=== PATIENT | female | born 1955 | race Hispanic/Latino ===

== ENCOUNTER 2017-12-27 17:17 | Observation (INO) | payer OTHER ==
--- NOTE | 2017-12-27 18:45 | ED PDOC ---
HPI: Chest Pain Time Seen by Provider: 12/27/17 17:39 Chief Complaint (Nursing): Chest Pain Chief Complaint (Provider): Chest Pain History Per: Patient History/Exam Limitations: no limitations Onset/Duration Of Symptoms: Hrs (10am) Current Symptoms Are (Timing): Still Present Quality: "Pain" Additional Complaint(s): 62 year old female presents to the ED complaining of pleuritic chest pain onset 10am today. Reports of feeling pain on the left-side when taking deep breath. States pain is not constant but she has difficulty breathing. Denies fever, cough, or similar pain in the past. PMD: Demarco Foote Past Medical History Reviewed: Historical Data, Nursing Documentation, Vital Signs Vital Signs: Last Vital Signs Temp 97.8 F 12/28/17 09:00 Pulse 76 12/28/17 09:00 Resp 16 12/28/17 09:00 BP 144/73 12/28/17 09:00 Pulse Ox 99 12/28/17 09:00 - Medical History PMH: No Chronic Diseases - Surgical History Surgical History: Appendectomy - Family History Family History: States: No Known Family Hx - Home Medications Home Medications: Ambulatory Orders Medication Instructions Recorded No Known Home Med 12/28/17 - Allergies Allergies/Adverse Reactions: Allergies Allergy/AdvReac Type Severity Reaction Status Date / Time No Known Allergies Allergy Verified 12/27/17 17:21 [place] Risk Score for UA/NSTEMI - [place] Risk Score Age > 64: NO 3 or more CAD Risk Factors: NO Known CAD (Stenosis greater than 50%): NO Aspirin use in past 7 days: NO Severe Angina: NO EKG ST changes greater than 0.5mm: NO Positive Cardiac Marker: NO [place] Score: 0 Risk %: 5% Wells Criteria for PE - Wells Criteria for Pulmonary Embolism Clinical Signs and Symptoms of DVT: No P.E is #1 Diagnosis, or Equally Likely: Yes (3) Heart Rate >100: No Immobilization at least 3 days;Surgery previous 4 weeks: No Previous, objectively diagnosed PE or DVT: No Hemoptysis: No Malignancy w/treatment within 6 months, or palliative: No Total Score: 1 Review of Systems ROS Statement: Except As Marked, All Systems Reviewed And Found Negative Constitutional: Negative for: Fever Cardiovascular: Positive for: Chest Pain Respiratory: Negative for: Cough Physical Exam - Reviewed Nursing Documentation Reviewed: Yes Vital Signs Reviewed: Yes - Physical Exam Appears: Positive for: Well, Non-toxic, No Acute Distress Head Exam: Positive for: ATRAUMATIC, NORMAL INSPECTION, NORMOCEPHALIC Skin: Positive for: Normal Color, Warm, Dry Eye Exam: Positive for: EOMI, Normal appearance, PERRL ENT: Positive for: Normal ENT Inspection Neck: Positive for: Normal, Painless ROM, Supple. Negative for: Decreased ROM Cardiovascular/Chest: Positive for: Regular Rate, Rhythm. Negative for: Murmur Respiratory: Positive for: Normal Breath Sounds. Negative for: Decreased Breath Sounds, Accessory Muscle Use, Respiratory Distress Gastrointestinal/Abdominal: Positive for: Normal Exam, Bowel Sounds, Soft. Negative for: Tenderness, Guarding, Rebound Back: Positive for: Normal Inspection. Negative for: L CVA Tenderness, R CVA Tenderness Extremity: Positive for: Normal ROM. Negative for: Tenderness, Pedal Edema, Deformity Neurologic/Psych: Positive for: Alert, Oriented (x3). Negative for: Motor/ Sensory Deficits - Laboratory Results Result Diagrams: 12/27/17 19:00 12/27/17 19:00 - ECG ECG: Positive for: Interpreted By Me, Viewed By Tn ECG Rhythm: Positive for: Normal QRS, Normal ST Segment, Sinus Rhythm. Negative for: ST/T Changes Rate: 83 O2 Sat by Pulse Oximetry: 99 (RA) Pulse Ox Interpretation: Normal Medical Decision Making Medical Decision Making: Time: 1758 Initial Impression: chest pain Differential Diagnosis includes but is not limited to: acute coronary syndrome, pulmonary embolism, and other pulmonary conditions considered but not listed Initial Plan: --EKG --MP --Troponin I --CBC w/ Differential --D Dimer --Chest One View --Program Technician --Reevaluation Time: 1899 Patient signed out to Dr. Mckeon by fl pending reevaluation. Scribe Attestation: Documented by Niall Cerda, acting as a scribe for Katherine Maldonado MD Provider Scribe Attestation: All medical record entries made by the Scribe were at my direction and personally dictated by me. I have reviewed the chart and agree that the record accurately reflects my personal performance of the history, physical exam, medical decision making, and the department course for this patient. I have also personally directed, reviewed, and agree with the discharge instructions and disposition. Disposition - Clinical Impression Clinical Impression: Chest pain - Patient ED Disposition Is Patient to be Admitted: Transfer of Care Counseled Patient/Family Regarding: Studies Performed, Diagnosis - Disposition Disposition: Transfer of Care Disposition Time: 19:00 Condition: STABLE Patient Signed Over To: Ian Mckeon (reevaluation )
[2017-12-27 19:04] LABS: BASO % 0.6 % (0.0-2.0); EOS % 0.3 % (0.0-4.0); HEMOGLOBIN 13.7 g/dL (12.0-16.0); LYMPH # 1.9 K/uL (1.0-4.3); LYMPH % 24.9 % (20.0-40.0); MEAN CELL VOLUME 99.6 fl (81.0-99.0); MEAN CORPUSCULAR HEMOGLOBIN 34.6 pg (27.0-31.0); MEAN CORPUSCULAR HGB CONC 34.7 g/dL (33.0-37.0); MEAN PLATELET VOLUME 7.9 fl (7.2-11.7); MONO # 0.8 K/uL (0.0-0.8); MONO % 10.9 % (0.0-10.0); NEUT # 4.9 K/uL (1.8-7.0); NEUT % 63.3 % (50.0-75.0); RBC 3.95 Mil/uL (3.80-5.20); RED CELL DISTRIBUTION WIDTH 12.5 % (11.5-14.5); WHITE BLOOD COUNT 7.7 K/uL (4.8-10.8)
[2017-12-27 19:25] LABS: BLOOD UREA NITROGEN 10 mg/dl (7-17); CALCIUM 9.3 mg/dL (8.4-10.2); GFR AFRICAN-AMERICAN > 60; GFR NON-AFRICAN AMERICAN > 60
--- NOTE | 2017-12-27 19:37 | ED PDOC ---
- Laboratory Results Result Diagrams: 12/27/17 19:00 12/27/17 19:00 - ECG O2 Sat by Pulse Oximetry: 99 (RA) Pulse Ox Interpretation: Normal Medical Decision Making Medical Decision Making: Time: 1899 Patient signed out to me by Dr. Maldonado pending reevaluation. Labs present no clinical abnormalities. Patient feels discomfort on left-side of chest that is worse with breathing and movement. Toradol 15mg IVP was ordered for the patient. Case was referred to Dr. Key who is covering for Dr. Bianchi. Scribe Attestation: Documented by Niall Cerda, acting as a scribe for Ian Mckeon MD Provider Scribe Attestation: All medical record entries made by the Scribe were at my direction and personally dictated by me. I have reviewed the chart and agree that the record accurately reflects my personal performance of the history, physical exam, medical decision making, and the department course for this patient. I have also personally directed, reviewed, and agree with the discharge instructions and disposition. Disposition Counseled Patient/Family Regarding: Studies Performed, Diagnosis - Clinical Impression Clinical Impression: Chest pain - POA Present On Arrival: None - Disposition Disposition: Hospitalized as Observation Patient Disposition Time: 20:30 Condition: FAIR
[2017-12-28] MEDS: Enoxaparin 40 mg Syringe SC SCH ×3 (00:14→23:36)
[2017-12-28 04:08] VITALS: BMI 20.8
[2017-12-28] MEDS ORDERED: Pneumococcal 23-Valent Vaccine IM ONE (08:00)
[2017-12-28 11:32] LABS: PARTIAL THROMBOPLASTIN TIME 40.4 Seconds (25.6-37.1); PROTHROMBIN TIME 10.7 Seconds (9.8-13.1)
--- NOTE | 2017-12-28 13:56 | RAD ---
PROCEDURE: CHEST RADIOGRAPH, 1 VIEW HISTORY: chest pain COMPARISON: None available. FINDINGS: LUNGS: Clear. PLEURA: No pneumothorax or pleural fluid seen. CARDIOVASCULAR: Normal. OSSEOUS STRUCTURES: No significant abnormalities. VISUALIZED UPPER ABDOMEN: Normal. OTHER FINDINGS: None. IMPRESSION: No active disease.
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
--- NOTE | 2017-12-28 21:11 | HP ---
CHIEF COMPLAINT: Chest pain. HISTORY OF PRESENT ILLNESS: This is a 62-year-old female who is a patient of Dr. Foote and was being followed up with Dr. Foote regularly, was having chest pain on and off for few days, brought the patient into emergency room and was admitted for further management. REVIEW OF SYSTEMS: Positive for chest pain. Review of systems otherwise is negative for headache, dizziness, syncope, loss of consciousness, nausea, vomiting, diarrhea, constipation, or any new joint or extremity pain. Review of systems of all other organ systems is unremarkable. PAST MEDICAL HISTORY: Unremarkable. PAST SURGICAL HISTORY: Remarkable for appendectomy. PERSONAL HISTORY: The patient is currently nonsmoker and nondrinker. No substance abuse. MEDICATIONS: The patient is not on any medication. ALLERGIES: THE PATIENT IS NOT ALLERGIC TO ANY MEDICATIONS. FAMILY HISTORY: Noncontributory. PHYSICAL EXAMINATION: GENERAL: A well-built and well-nourished 62-year-old female in no acute distress. VITAL SIGNS: Temperature 98.2, pulse 75, respirations 18, blood pressure 137/83, and saturation 98%. HEENT AND NECK: Pupils reacting to light. No JVD. No thyromegaly. No lymphadenopathy. No nystagmus. Normocephalic and atraumatic skull. HEART: S1 and S2, normal and regular. No significant murmur, gallop, or rub is heard. LUNGS: Show good bilateral air exchange. No rales or rhonchi. ABDOMEN: Soft and nontender. No organomegaly. No fluid. Bowel sounds are plus and normal. EXTREMITIES: No edema. No calf swelling. No tenderness. No acute ischemia. CENTRAL NERVOUS SYSTEM: Essentially unchanged. DIAGNOSTIC DATA: Available diagnostic data reviewed. WBC 7.5, hemoglobin 13.5, hematocrit 39.3, and platelets 214. Sodium 134, potassium 3.8, chloride 99, bicarb 20, BUN 10, and creatinine 0.5. Cardiac workup; three sets are negative. Chest x-ray is clear. Telemetry monitoring does not . IMPRESSION: Chest pain, rule out acute coronary syndrome. PLAN: Plan as ordered. Case and plan discussed with the patient. Jigar Key MD
[2017-12-29 00:33] VITALS: RESP 18
[2017-12-29 05:42] VITALS: O2SAT 98
--- NOTE | 2017-12-29 06:31 | CARD ---
APPROVED REPORT EKG Measurement Heart [id number] <Conclusion> Normal sinus rhythm Normal ECG
--- NOTE | 2017-12-29 07:35 | CP.PCM.PN ---
Subjective - Date & Time of Evaluation Date of Evaluation: 12/29/17 Time of Evaluation: 07:34 - Subjective Subjective: feeling fine today Objective - Vital Signs/Intake and Output Vital Signs (last 24 hours): Temp Pulse Resp BP Pulse Ox 98.3 F 76 18 122/81 98 12/29/17 05:42 12/29/17 05:42 12/29/17 05:42 12/29/17 05:42 12/29/17 05:42 - Medications Medications: Current Medications Enoxaparin Sodium (Lovenox) 40 mg SC DAILY SALTY PRN Reason: Protocol Last Admin: 12/28/17 23:36 Dose: 40 mg - Labs Labs: 12/27/17 19:00 12/27/17 19:00 PT 10.7 Seconds (9.8-13.1) 12/28/17 11:04 INR 1.0 (0.9-1.2) 12/28/17 11:04 APTT 40.4 Seconds (25.6-37.1) H 12/28/17 11:04 - Constitutional Appears: Well - Head Exam Head Exam: ATRAUMATIC, NORMAL INSPECTION, NORMOCEPHALIC - Eye Exam Eye Exam: EOMI, Normal appearance, PERRL Pupil Exam: NORMAL ACCOMODATION, PERRL - ENT Exam ENT Exam: Mucous Membranes Moist, Normal Exam - Neck Exam Neck Exam: Full ROM, Normal Inspection. absent: Lymphadenopathy - Respiratory Exam Respiratory Exam: Clear to Ausculation Bilateral, NORMAL BREATHING PATTERN - Cardiovascular Exam Cardiovascular Exam: REGULAR RHYTHM, +S1, +S2. absent: Murmur - GI/Abdominal Exam GI & Abdominal Exam: Soft, Normal Bowel Sounds. absent: Tenderness - Extremities Exam Extremities Exam: Full ROM, Normal Capillary Refill, Normal Inspection. absent : Joint Swelling, Pedal Edema - Back Exam Back Exam: NORMAL INSPECTION - Neurological Exam Neurological Exam: Alert, Awake, CN II-XII Intact, Normal Gait, Oriented x3 - Psychiatric Exam Psychiatric exam: Normal Affect, Normal Mood - Skin Skin Exam: Dry, Intact, Normal Color, Warm Assessment and Plan (1) Chest pain Assessment & Plan: etiology 2' to anxiety stable to dc home after echo Status: Acute (2) Anxiety Status: Acute
[2017-12-29 07:42] VITALS: BP 138/82; PULSE 73; TEMP 98.2
[2017-12-29] MEDS: Enoxaparin 40 mg Syringe SC SCH (08:53)
--- NOTE | 2017-12-30 08:02 | CARD ---
APPROVED REPORT EXAM: Two-dimensional and M-mode echocardiogram with Doppler and color Doppler. Other Information Quality : GoodRhythm : NSR INDICATION Chest Pain 2D DIMENSIONS IVSd0.94 (0.7-1.1cm)LVDd4.05 (3.9-5.9cm) LVOT Diameter1.69 (1.8-2.4cm)PWd0.97 (0.7-1.1cm) IVSs1.12 (0.8-1.2cm)LVDs2.70 (2.5-4.0cm) FS (%) 33.4 %PWs1.27 (0.8-1.2cm) M-Mode DIMENSIONS Left Atrium (MM)3.67 (2.5-4.0cm)IVSd1.02 (0.7-1.1cm) Aortic Root2.67 (2.2-3.7cm)LVDd4.41 (4.0-5.6cm) Aortic Cusp Exc.1.79 (1.5-2.0cm)PWd0.80 (0.7-1.1cm) IVSs1.60 cmFS (%) 46 % LVDs2.40 (2.0-3.8cm)PWs1.46 cm Mitral Valve MV E Xznvllre33.1cm/sMV DECEL [id number] A Buvbhfbt10.4cm/s MV [id number] ratio0.9MVA (PHT)3.00cm2 TDI Lateral E' Peak V9.70cm/sMedial E' Peak V8.47cm/sE/Lateral E'6.5 E/Medial E'7.4 Pulmonary Valve PV Peak Ubpvhlvw87.5cm/s Tricuspid Valve TR Peak Lrtggrzv791qv/sRAP [id number] Peak Gr.15mmHg [id number] LEFT VENTRICLE The left ventricle is normal size. There is normal left ventricular wall thickness. Left ventricle systolic function is normal. The Ejection Fraction is 65-70%. There is normal LV segmental wall motion. Transmitral Doppler flow pattern is Grade I-abnormal relaxation pattern. RIGHT VENTRICLE The right ventricle is normal size. There is normal right ventricular wall thickness. The right ventricular systolic function is normal. ATRIA The left atrium size is normal. The right atrium size is normal. AORTIC VALVE The aortic valve is normal in structure. No aortic regurgitation is present. There is no aortic valvular stenosis. MITRAL VALVE The mitral valve is normal in structure. There is no evidence of mitral valve prolapse. There is no mitral valve stenosis. There is no mitral valve regurgitation noted. TRICUSPID VALVE The tricuspid valve is normal in structure. There is trace to mild tricuspid regurgitation. Right ventricular systolic pressure is estimated at 26 mmHg. There is no pulmonary hypertension. PULMONIC VALVE The pulmonary valve is normal in structure. There is no pulmonic valvular regurgitation. GREAT VESSELS The aortic root is normal in size. The IVC is normal in size and collapses >50% with inspiration. PERICARDIAL EFFUSION The pericardium appears normal. <Conclusion> The left ventricle is normal size. There is normal left ventricular wall thickness. There is normal LV segmental wall motion. Left ventricle systolic function is normal. The Ejection Fraction is 65-70%. Transmitral Doppler flow pattern is Grade I-abnormal relaxation pattern.
--- NOTE | 2017-12-30 09:34 | PN ---
DATE: 12/29/2017 SUBJECTIVE: The patient is seen and examined. Interim events noted. Consults noted and appreciated. Case discussed with emergency management system director. The patient feels okay. No chest pain and no shortness of breath. PHYSICAL EXAMINATION: GENERAL: The patient is in no acute distress. VITAL SIGNS: Stable. HEART: S1 and S2, . EXTREMITIES: No edema. No tenderness. No acute . DIAGNOSTIC DATA: Available diagnostic data reviewed. Acute [place] was rule out and telemetry monitoring does not reveal significant arrhythmias. ASSESSMENT AND PLAN: Overall, the patient's general medical condition is stable. We will discharge the patient home today. Case discussed with Cardiology. The patient will followed up by the patient's primary care physician Dr. Foote. Case and plan discussed with the patient. Jigar Key MD
== END 2017-12-29 15:15 | disposition home or self-care (01) ==
LOC: H.ER 17:17 → H.ERHOLD 20:43 → H.TEL 23:05
PROVIDERS: ADMIT Internal Medicine; ATTEND Internal Medicine
DX: F41.9 Anxiety disorder, unspecified (principal); R07.81 Pleurodynia; M81.0 Age-related osteoporosis without current pathological fracture; Z87.891 Personal history of nicotine dependence; Z90.49 Acquired absence of other specified parts of digestive tract; Z23 Encounter for immunization
CPT/HCPCS: 36415; 71045; 80048; 84484; 85025; 85378; 85610; 85730; 90471; 90732; 93005; 93306; 96374; 99285; G0378; J1650; J1885